=== PATIENT | female | born 1995 | race African-American/Black ===

== ENCOUNTER 2019-04-29 16:07 | Emergency (ER) | payer OTHER ==
[~2019-04-29] VITALS: Ht 154.9 cm; Wt 57.3 kg
[2019-04-29 16:08] VITALS: BP 125/67
[2019-04-29] MEDS ORDERED: BENZONATATE 100 MG CAP PO ONE (17:30)
[2019-04-29] MEDS ORDERED: GUAI1SOL7 PO (18:50)
== END 2019-04-29 18:57 | disposition home or self-care (01) ==
LOC: M ED 16:07
DX: J02.9 Acute pharyngitis, unspecified (principal); R05 Cough; B34.9 Viral infection, unspecified

== ENCOUNTER 2019-05-17 19:07 | Emergency (ER) | payer OTHER ==
[~2019-05-17] VITALS: Ht 154.9 cm; Wt 58.0 kg
[~2019-05-17 19:07] MED LIST: GUAI1SOL7 PO
[2019-05-17] MEDS ORDERED: AUGM500T34 PO (20:56)
[2019-05-17] MEDS ORDERED: AUGMENTIN 500 MG TAB PO ONE (21:00)
[2019-05-17 21:05] VITALS: BP 116/73
== END 2019-05-17 21:24 | disposition home or self-care (01) ==
LOC: M ED 19:07
DX: L05.01 Pilonidal cyst with abscess (principal)

== ENCOUNTER 2019-09-09 13:26 | Emergency (ER) | payer OTHER ==
[~2019-09-09] VITALS: Ht 154.9 cm; Wt 54.5 kg
[~2019-09-09 13:26] MED LIST changes: +AUGM500T34 PO
[2019-09-09 14:11] LABS: BASO % 0.5 % (0.0-1.0); EOS # 0.1 10^3/uL (0.0-0.5); EOS % 0.8 % (0.0-3.0); HEMATOCRIT 41.4 % (36.0-47.0); HEMOGLOBIN 13.6 g/dl (12.0-15.5); LYMPH # 2.3 10^3/uL (1.5-5.0); LYMPH % 36.3 % (24.0-44.0); MEAN CORPUSCULAR HEMOGLOBIN 30.6 pg (27.0-33.0); MEAN CORPUSCULAR HGB CONC 32.9 g/dl (32.0-36.5); MONO # 0.7 10^3/uL (0.0-0.8); NEUTROPHILS # 3.2 10^3/uL (1.5-8.5); NEUTROPHILS % 51.1 % (36.0-66.0); PLATELET COUNT, AUTOMATED 280 10^3/uL (150-450); RED BLOOD COUNT 4.45 10^6/uL (4.00-5.40); WHITE BLOOD COUNT 6.3 10^3/uL (4.0-10.0)
[2019-09-09 14:42] LABS: ALBUMIN 4.2 GM/DL (3.2-5.2); ALT/SGPT 21 U/L (12-78); BILIRUBIN,DIRECT 0.2 MG/DL (0.0-0.2); BLOOD UREA NITROGEN 7 MG/DL (7-18); CALCIUM LEVEL 9.2 MG/DL (8.5-10.1); CARBON DIOXIDE LEVEL 26 MEQ/L (21-32); CHLORIDE LEVEL 108 MEQ/L (98-107); GLOMERULAR FILTRATION RATE > 60.0 (>60); GLUCOSE, FASTING 83 MG/DL (70-100); LIPASE 80 U/L (73-393); POTASSIUM SERUM 4.1 MEQ/L (3.5-5.1); SODIUM LEVEL 140 MEQ/L (136-145); TOTAL PROTEIN 7.9 GM/DL (6.4-8.2)
--- NOTE | 2019-09-09 16:26 | REP ---
Pelvic sonography: History: Lower abdomen pain. Findings: Transabdominal and transvaginal scanning are performed. Visualized bladder chin are smooth. Uterine dimensions are normal at 8.3 x 3.9 x 5.0 cm. Endometrial echo 0.9 cm thick. No focal uterine mass is seen. Normal right ovary is seen with dimensions of 2.7 x 2.3 x 2.6 cm. Its Doppler flow is normal, resistive index 0.71. Left ovary dimensions are 5.5 x 4.3 x 4.7 cm. The left ovary contains a 3.7 x 2.9 x 3.6 cm complex cyst. Its Doppler flow is present. Resistive index 0.7. Impression: Complex cystic area in the left ovary 3.7 cm in greatest diameter. Otherwise unremarkable. Electronically Signed by Chris Estrada MD 09/09/2019 05:00 P
[2019-09-09 17:29] VITALS: BP 124/58
--- NOTE | 2019-09-11 10:30 | ED PDOC ---
Post-Departure Follow-Up ft jaime jacome faxed formal report of pelvic us for fu Reggie Lincoln MD Sep 11, 2019 10:30
== END 2019-09-09 17:30 | disposition home or self-care (01) ==
LOC: M ED 13:26
DX: N83.292 Other ovarian cyst, left side (principal)

== ENCOUNTER 2019-12-09 18:29 | Emergency (ER) | payer OTHER ==
[~2019-12-09] VITALS: Ht 154.9 cm; Wt 59.9 kg
[2019-12-09 18:30] VITALS: BP 138/63
[2019-12-09] MEDS ORDERED: BACT800T5 PO (18:53)
== END 2019-12-09 19:14 | disposition home or self-care (01) ==
LOC: M ED 18:29
DX: L02.214 Cutaneous abscess of groin (principal)

== ENCOUNTER 2020-05-04 08:09 | Day surgery (SDC) | payer OTHER ==
[~2020-05-04] VITALS: Ht 154.9 cm; Wt 57.2 kg
[~2020-05-04 08:09] MED LIST changes: +BACT800T5 PO; +LIDOCAINE 1% MDV 20ML VIAL SQ PRN; +LR 1,000 ML IV ONE
[2020-05-04] MEDS ORDERED: ACETAMINOPHEN 1000MG 100ML IV BTL (OFIRMEV) (J0131 PER 10MG) As Ordered ONE (08:17)
[2020-05-04] MEDS ORDERED: dexameTHASONE 4 MG/ML 1ML VIAL (J1100 PER 1MG) As Ordered ONE (08:17)
[2020-05-04] MEDS ORDERED: ONDANSETRON 4MG/2ML VIAL As Ordered ONE (08:17)
[2020-05-04] MEDS ORDERED: LIDOCAINE 2% 100MG/5ML SDV (FOR ANES.) As Ordered ONE (08:17)
[2020-05-04] MEDS ORDERED: ROCURONIUM BROMIDE 50 MG/5 ML VIAL As Ordered ONE (08:17)
[2020-05-04] MEDS ORDERED: propofoL 200 MG/20 ML VIAL As Ordered ONE (08:17)
[2020-05-04] MEDS ORDERED: MIDAZOLAM INJ 2MG/2ML VIAL (J2250 PER 1MG) As Ordered ONE (08:17)
[2020-05-04] MEDS ORDERED: fentaNYL 250 MCG/5 ML INJECTION (J3010) As Ordered ONE (08:18)
[2020-05-04] MEDS ORDERED: KETOROLAC 60MG 2ML VIAL As Ordered ONE (08:19)
[2020-05-04 08:40] LABS: HEMATOCRIT 40.7 % (36.0-47.0); HEMOGLOBIN 13.6 g/dl (12.0-15.5); MEAN CORPUSCULAR HEMOGLOBIN 31.4 pg (27.0-33.0); MEAN CORPUSCULAR HGB CONC 33.4 g/dl (32.0-36.5); PLATELET COUNT, AUTOMATED 260 10^3/uL (150-450); RED BLOOD COUNT 4.33 10^6/uL (4.00-5.40); WHITE BLOOD COUNT 5.9 10^3/uL (4.0-10.0)
[2020-05-04 08:59] LABS: HCG, SERUM QUALITATIVE NEGATIVE (NEGATIVE)
[2020-05-04] MEDS ORDERED: BUPIVACAINE/EPIN 0.25% 30 ML VIAL As Ordered ONE (09:41)
[2020-05-04] MEDS ORDERED: METHYLENE BLUE 0.5% (5MG/ML) 10 ML AMP (PROVAYBLUE) As Ordered ONE (09:41)
[2020-05-04] MEDS ORDERED: SUGAMMADEX SODIUM 500 MG/5 ML VIAL (BRIDION) As Ordered ONE (10:43)
[2020-05-04] MEDS ORDERED: fentaNYL 100 MCG/2 ML INJECTION (J3010) IV PRN (11:45)
[2020-05-04] MEDS ORDERED: oxyCODONE 5MG TAB PO PRN (11:45)
[2020-05-04] MEDS ORDERED: HYDROMORPHONE HCL 0.5 MG/ 0.5 ML SYRINGE (J1170 PER 1) IV PRN (11:45)
[2020-05-04] MEDS ORDERED: ONDANSETRON 4MG/2ML VIAL IV PRN (11:45)
[2020-05-04] MEDS ORDERED: LR 1,000 ML IV SCH (11:45)
--- NOTE | 2020-05-04 11:51 | POST-OPPD ---
Postoperative Procedure Note Date Of Procedure: May 04, 2020 PREOPERATIVE DIAGNOSIS: Infertility POSTOPERATIVE DIAGNOSIS: 1. Bilateral nonpatent dilated fallopian tubes. 2. right simple appearing 4cm ovarian cyst FINDINGS: 1. bilateral nonpatent dilated fallopian tubes. Right fallopian tube appears to be blocked at the mid ithmus segment. 2. Right simple appearing ~4cm ovarian cyst PROCEDURE: 1. Diagnostic laparoscopy with chromopertubation 2. Unsuccessful attempt at fimbrioplasty SURGEON: Dheeraj Hernandez DO REPAIRER PUMP: Addy Vinson MD ANESTHESIA: General SPECIMENS: none ESTIMATED BLOOD LOSS: < 5cc REPLACED: 1000cc LR DRAINS: 300cc Urine COMPLICATIONS: NONE POSTOPERATIVE CONDITION: STABLE Laparoscopic findings: Normal appearing uterus. Bilateral dilated and non patent fallopian tubes. Left fallopian tube with significant dilation as well as adhesions to surrounding bowel and ovary. Right fallopian tube with blockage at the midithmus portion. Normal appearing bowel, appendix and liver edge. Description of procedure: The risks, benefits, indications and alternatives of the procedure were reviewed with the patient and informed writen consent was obtained. The patient was taken to the operating room with IV running. She was placed under general anesthesia with endotracheal tube. Arms tucked. Patient placed in lithotomy. The abdomen, vagina and perineum were prepped and draped in the usual sterile fashion. White inserted. Zumi uterine manipulator placed for uterine manipulation. Small incision made in umbilicus. Veres needle introduced. Saline drop test confirmed intraabdominal placement. Abdomen insufflated with CO2. Five mm trocar introduced under direct visualization. Surveys reviews no bowel injury or bleeding. Two 5mm ports placed left lower abdomen with direct visualization. Findings as above. Chromopertubation performed using methaline blue dilated with normal saline. Injection shows filled without spill of bilateral fallopian tubes. Attempt at opening the scarred right fimbriae released the distal pressure. The dye could not pass the mid ithmus portion of the tube. Freeing the left fimbriae end from filmy adhesions revealed significant disease concerning for high chance of ectopic if this tube is opened. No attempt at opening the left fimbriae was made. An area in the posterior cul-de-sac appeared to be an endometriotic lesion, but fell off with contact. Camera and instruments removed from abdomen. Incision sites closed with 4-O monocryl and dermabond. White and unterine manipulator removed from the vagina. Count correct x 2. Patient was taken out of OR in stable condition. DHEERAJ HERNANDEZ DO May 04, 2020 11:29
[2020-05-04 13:50] VITALS: BP 124/65
== END 2020-05-04 13:52 | disposition home or self-care (01) ==
LOC: M SDC 08:09
PROVIDERS: ATTEND Obstetrics & Gynecology
DX: N97.1 Female infertility of tubal origin (principal); N83.291 Other ovarian cyst, right side; N93.9 Abnormal uterine and vaginal bleeding, unspecified
CPT/HCPCS: 36415; 49320; 58350; 84703; 85027; 86850; 86900; 86901; J0131; J1100; J1885; J2250; J2405; J3010; Q9968